=== PATIENT | male | born 1975 | race American Indian/Alaskan Native ===

== ENCOUNTER 2018-01-05 16:51 | Emergency (ER) | payer OTHER ==
[2018-01-05 17:13] VITALS: BP 174/104
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
== END 2018-01-05 20:53 | disposition home or self-care (01) ==
LOC: ED 16:51
DX: R51 Headache (principal); I10 Essential (primary) hypertension
CPT/HCPCS: 99282